=== PATIENT | male | born 1950 | race Caucasian/White ===

== ENCOUNTER 2018-10-21 20:54 | Emergency (ER) | payer MEDICARE, OTHER ==
[~2018-10-21] VITALS: Ht 182.9 cm; Wt 94.8 kg
[2018-10-21 20:58] VITALS: Ht 182.9 cm; Wt 94.8 kg
[2018-10-21] MEDS ORDERED: MOBIC7.5 MG (20:59)
[2018-10-21] MEDS ORDERED: ZOLOFT25 MG (20:59)
[2018-10-21] MEDS ORDERED: COZAAR25 MG (20:59)
[2018-10-21] MEDS ORDERED: HYDROCODON-ACE1 EAC7 PO (22:07)
[2018-10-21 22:34] VITALS: BP 146/71
== END 2018-10-21 22:34 | disposition home or self-care (01) ==
LOC: D.ER 20:54
DX: S93.402A Sprain of unspecified ligament of left ankle, initial encounter (principal); W11.XXXA Fall on and from ladder, initial encounter; Y93.89 Activity, other specified; Y92.89 Other specified places as the place of occurrence of the external cause